=== PATIENT | female | born 1970 | race Two or more races ===

== ENCOUNTER 2020-05-29 21:31 | Emergency (ER) | payer OTHER ==
[~2020-05-29] VITALS: Ht 149.9 cm; Wt 65.0 kg
[2020-05-29 22:35] VITALS: BP 141/76
== END 2020-05-30 00:20 | disposition left against medical advice (07) ==
LOC: ER 21:31
DX: M25.562 Pain in left knee (principal); M25.572 Pain in left ankle and joints of left foot; Z53.21 Procedure and treatment not carried out due to patient leaving prior to being seen by health care provider; X50.1XXA Overexertion from prolonged static or awkward postures, initial encounter; Y93.89 Activity, other specified; Y92.69 Other specified industrial and construction area as the place of occurrence of the external cause; Y99.8 Other external cause status